=== PATIENT | male | born 1990 | race Caucasian/White ===

== ENCOUNTER 2017-06-16 01:47 | Emergency (ER) | payer BC, MEDICAID ==
[~2017-06-16] VITALS: Ht 185.4 cm; Wt 148.6 kg
[2017-06-16] MEDS: ibuprofen tablet 400 MG TABLET PO ONE (02:26)
[2017-06-16] MEDS ORDERED: ACET1TAB25 PO (02:32)
[2017-06-16] MEDS ORDERED: IBUP-1984 PO (02:32)
[2017-06-16 02:50] VITALS: BP 134/79
== END 2017-06-16 02:54 | disposition home or self-care (01) ==
LOC: ER 01:48
DX: S90.01XA Contusion of right ankle, initial encounter (principal); F17.200 Nicotine dependence, unspecified, uncomplicated; Z88.0 Allergy status to penicillin; Z88.2 Allergy status to sulfonamides; Z88.1 Allergy status to other antibiotic agents; W20.8XXA Other cause of strike by thrown, projected or falling object, initial encounter; Y93.89 Activity, other specified; Y92.89 Other specified places as the place of occurrence of the external cause; Y99.8 Other external cause status
CPT/HCPCS: 29515; 73590; 73610; 73630; 99284

== ENCOUNTER 2017-09-19 15:46 | Emergency (ER) | payer BC, MEDICAID ==
[~2017-09-19] VITALS: Ht 182.9 cm; Wt 133.0 kg
[2017-09-19 16:07] VITALS: BP 142/67
[2017-09-19] MEDS ORDERED: HYDR-3965 PO (16:43)
== END 2017-09-19 16:51 | disposition home or self-care (01) ==
LOC: ER 15:46
DX: R07.81 Pleurodynia (principal); Z88.1 Allergy status to other antibiotic agents; Z88.2 Allergy status to sulfonamides; Z98.890 Other specified postprocedural states; W01.198A Fall on same level from slipping, tripping and stumbling with subsequent striking against other object, initial encounter; Y93.E1 Activity, personal bathing and showering; Y92.89 Other specified places as the place of occurrence of the external cause; Y99.8 Other external cause status
CPT/HCPCS: 71100; 99282; 99284

== ENCOUNTER 2018-06-19 06:08 | Day surgery (SDC) | payer OTHER ==
[2018-06-12 14:34] LABS: BASOPHILS # (AUTO) 0.2 X10'3 (0-0.2); BASOPHILS % (AUTO) 1.3 % (0-1); EOSINOPHILS # (AUTO) 0.5 X10'3 (0-0.9); EOSINOPHILS % (AUTO) 3.4 % (0-6); LYMPHOCYTES # (AUTO) 3.1 X10'3 (1.1-4.8); LYMPHOCYTES % (AUTO) 22.7 % (21-51); MEAN CORPUSCULAR HEMOGLOBIN 30.9 PG (27.0-31.0); MEAN CORPUSCULAR HGB CONC 34.4 % (33.0-36.5); MEAN CORPUSCULAR VOLUME 89.7 FL (78-98); MEAN PLATELET VOLUME 8.5 FL (7.4-10.4); MONOCYTES # (AUTO) 0.6 X10'3 (0-0.9); MONOCYTES % (AUTO) 4.3 % (2-12); NEUTROPHILS # (AUTO) 9.4 X10'3 (1.8-7.7); NEUTROPHILS % (AUTO) 68.3 % (42-75); PRE OP HEMATOCRIT 47.6 % (42.0-52.0); PRE OP HEMOGLOBIN 16.4 g/dL (14.0-17.9); PRE OP PLATELET COUNT 259 X10'3 (140-440); RED CELL DISTRIBUTION WIDTH 12.8 % (11.5-14.5)
[2018-06-12 14:49] LABS: ALBUMIN/GLOBULIN RATIO 0.9 (1.1-1.5); ALKALINE PHOSPHATASE 85 IU/L (46-116); BLOOD UREA NITROGEN 9 MG/DL (7-18); BUN/CREATININE RATIO 10.2 (5.4-32.0); CALCIUM 9.1 MG/DL (8.5-10.1); CHLORIDE 102 MMOL/L (99-107); CREATININE 0.88 MG/DL (0.60-1.10); PRE OP ALT 62 U/L (30-65); PRE OP ANION GAP 10 (8-16); PRE OP AST 28 U/L (10-37); PRE OP BILIRUB, TOTAL 0.4 MG/DL (0.0-1.0); PRE OP GLUCOSE 83 MG/DL (70-104); PRE OP POTASSIUM 3.9 MMOL/L (3.4-5.1); PRE OP SODIUM 138 MMOL/L (135-145); TOTAL CARBON DIOXIDE 26.4 MMOL/L (24-32); TOTAL PROTEIN 8.6 G/DL (6.4-8.2); eGFR > 90 ML/MIN
[~2018-06-19] VITALS: Ht 182.9 cm; Wt 164.0 kg
[~2018-06-19 06:08] MED LIST: NO HOME MEDS; albuterol 2.5 MG/3 ML nebule NEB ONE; clindamycin 600mg/D5W 50ml 50 ML IV ONE; famotidine 20mg tablet PO ONE; ringers solution, lacted 1,000 ML IV SCH
[2018-06-19] MEDS ORDERED: LIDOcaine 1% 30ml preserv. free vial ONE (07:40)
[2018-06-19] MEDS ORDERED: ringers solution, lacted 1,000 ML IV SCH (08:07)
[2018-06-19] MEDS ORDERED: ondansetron/PF 4mg/2ml inj IV PRN (08:10)
[2018-06-19] MEDS ORDERED: meperidine/PF 25mg/ml syringe IV PRN ×3 (08:10)
[2018-06-19] MEDS ORDERED: morphine 4 MG/ML inj SYRINge IV PRN ×2 (08:10)
[2018-06-19] MEDS ORDERED: proCHLORperazine 10 MG/2 ml inj IV PRN (08:10)
[2018-06-19] MEDS ORDERED: MIDAZolam 5mg/5ml vial ONE (08:21)
[2018-06-19] MEDS ORDERED: fentaNYL/PF 50MCG/1 ML 2ML syringe ONE (08:21)
[2018-06-19] MEDS ORDERED: BUPIVAcaine/PF 2.5mg/ml (0.25%) 10ml vial ONE (08:26)
[2018-06-19] MEDS ORDERED: ketorolac trometh. 30mg/ml inj. ONE (09:05)
[2018-06-19 09:10] VITALS: BP 116/74
--- NOTE | 2018-06-19 09:10 | NUR ---
Received from OR via BED, accompanied by Anesthesiologist DR MENDIETA and report given by Anesthesiolgist. PATIENT A&OX4, DENIES PAIN, V/S WNL, NEUROVASCULAR CHECKS INTACT, 20G PIV LUE, SCD ON, DRESSING TO RIGHT WRIST CDI ELEVATED WITH ICEBAG APPLIED.
[2018-06-19 09:20] VITALS: BP 111/69
[2018-06-19 09:30] VITALS: BP 119/72
--- NOTE | 2018-06-19 09:30 | NUR ---
PATIENT A&OX4, DENIES PAIN, V/S WNL, NEUROVASCULAR CHECKS INTACT, 20G PIV LUE D/C, SCD OFF, DRESSING TO RIGHT WRIST CDI ELEVATED WITH ICEBAG APPLIED. I HAVE REVIEWED D/C INSTRUCTIONS WITH PATIENT AND FAMILY AND THEY HAVE VERBALIZED UNDERSTANDING. PATIENT D/C HOME WITH ALL BELONGINGS AND FAMILY GAVE TRANSPORT HOME.
[2018-06-19 12:35] VITALS: BP 120/86
[2018-06-19 12:39] VITALS: BP 120/56
== END 2018-06-19 09:30 | disposition home or self-care (01) ==
LOC: PAS 06:08
PROVIDERS: ATTEND Orthopaedic Surgery Hand Surgery
DX: G56.01 Carpal tunnel syndrome, right upper limb (principal); F41.9 Anxiety disorder, unspecified; E66.01 Morbid (severe) obesity due to excess calories; Z88.8 Allergy status to other drugs, medicaments and biological substances; Z88.1 Allergy status to other antibiotic agents; Z72.89 Other problems related to lifestyle; Z68.42 Body mass index [BMI] 45.0-49.9, adult
CPT/HCPCS: 29848; 36415; 80053; 82948; 85025; A6449; J1885; J2250; J3010; J3490; A7000; J7120

== ENCOUNTER 2018-09-28 07:39 | Emergency (ER) | payer OTHER ==
[~2018-09-28] VITALS: Ht 182.9 cm; Wt 163.6 kg
[~2018-09-28 07:39] MED LIST changes: -albuterol 2.5 MG/3 ML nebule NEB ONE; -clindamycin 600mg/D5W 50ml 50 ML IV ONE; -famotidine 20mg tablet PO ONE; -ringers solution, lacted 1,000 ML IV SCH
--- NOTE | 2018-09-28 07:50 | NUR ---
PATIENT PER WC TO ER #2. STATES HE SLIPPED ON THE PORCH THIS MORNING AND FELL DOWN STAIRS, INJURING HIS LEFT ANKLE.
[2018-09-28] MEDS ORDERED: HYDROcodone/acetaminophen 5mg/325mg tablet PO ONE (07:55)
[2018-09-28] MEDS ORDERED: HYDR-4383 PO (09:06)
[2018-09-28 09:50] VITALS: BP 137/53
== END 2018-09-28 09:54 | disposition home or self-care (01) ==
LOC: ER 07:39
DX: S82.65XA Nondisplaced fracture of lateral malleolus of left fibula, initial encounter for closed fracture (principal); F17.210 Nicotine dependence, cigarettes, uncomplicated; Z88.1 Allergy status to other antibiotic agents; Z88.2 Allergy status to sulfonamides; Z79.899 Other long term (current) drug therapy; Z98.890 Other specified postprocedural states; W10.8XXA Fall (on) (from) other stairs and steps, initial encounter; Y93.01 Activity, walking, marching and hiking; Y92.89 Other specified places as the place of occurrence of the external cause; Y99.8 Other external cause status
CPT/HCPCS: 29125; 29515; 73610; 99284

== ENCOUNTER 2018-09-30 09:53 | Outpatient (CLI) | payer SELFPAY ==
[~2018-09-30 09:53] MED LIST changes: +HYDR-4383 PO
[2018-09-30 11:09] VITALS: BP 153/96
== END 2018-09-30 11:30 | disposition home or self-care (01) ==
LOC: ORTHO 09:53
PROVIDERS: ATTEND Orthopaedic Surgery
DX: S82.52XA Displaced fracture of medial malleolus of left tibia, initial encounter for closed fracture (principal); F17.200 Nicotine dependence, unspecified, uncomplicated; X58.XXXA Exposure to other specified factors, initial encounter; Y93.89 Activity, other specified; Y92.89 Other specified places as the place of occurrence of the external cause; Y99.8 Other external cause status
CPT/HCPCS: 29405; 99213; A4590

== ENCOUNTER 2018-10-06 19:13 | Emergency (ER) | payer SELFPAY ==
[~2018-10-06] VITALS: Ht 182.9 cm; Wt 159.0 kg
[2018-10-06 19:32] VITALS: BP 135/90
== END 2018-10-06 20:59 | disposition home or self-care (01) ==
LOC: ER 19:13
DX: S82.65XD Nondisplaced fracture of lateral malleolus of left fibula, subsequent encounter for closed fracture with routine healing (principal); Z98.890 Other specified postprocedural states; Z88.1 Allergy status to other antibiotic agents; Z88.2 Allergy status to sulfonamides; Z79.899 Other long term (current) drug therapy; W10.8XXD Fall (on) (from) other stairs and steps, subsequent encounter
CPT/HCPCS: 29515; 99283

== ENCOUNTER → 2018-10-08 | Outpatient (CLI) | payer SELFPAY ==
[~2018-10-08] VITALS: Ht 182.9 cm; Wt 159.0 kg
[2018-10-08 13:01] VITALS: BP 120/82
== END | disposition home or self-care (01) ==
LOC: ORTHO 11:55
PROVIDERS: ATTEND Orthopaedic Surgery
DX: S82.832D Other fracture of upper and lower end of left fibula, subsequent encounter for closed fracture with routine healing (principal); X58.XXXD Exposure to other specified factors, subsequent encounter
CPT/HCPCS: 29515; 73610; 99214

== ENCOUNTER 2025-03-19 11:32 | Emergency (ER) | payer SELFPAY ==
[~2025-03-19] VITALS: Ht 182.9 cm; Wt 125.0 kg
--- NOTE | 2025-03-19 11:37 | Physician Documentation ---
History of Present Illness ~ Stated Complaint: DOG BITE Time Seen by MD: 11:37 Primary Medical Doctor: NONE HPI 34-year-old male who presents to the emergency department reporting that he picked up a puppy from someone on the street today, and when he put the dog in his truck and began petting it, the dog bit him several times to the right hand wrist and base of the thumb. Unknown tetanus status. Rabies status of the dog is unknown. Tetanus within 5 years?: No Medication Reconciliation Allergies: Coded Allergies: amoxicillin (Verified Allergy, Intermediate, RASH, 06/12/18) cephalexin (Verified Allergy, Intermediate, RASH, LIPS SWELL WITH BLISTERS, 06/12/18) clavulanic acid (Verified Allergy, Intermediate, RASH, 06/12/18) sulfamethoxazole (Verified Allergy, Intermediate, RASH, 06/12/18) trimethoprim (Verified Allergy, Intermediate, RASH, 06/12/18) Uncoded Allergies: SPECTRUM (Allergy, Unknown, 06/16/17) Scheduled Doxycycline Monohydrate (Doxycycline Monohydrate), 1 CAP PO Q12H Metronidazole* (Flagyl*), 1 TAB PO Q12H Scheduled PRN Hydrocodone/Acetaminophen (Okay 5-325 Tablet), 1 TAB PO TID PRN PRN for pain Miscellaneous Medications Home Med List (No Home Medications), (Reported) Past Medical History Past Medical History: Anxiety Past Surgical History: orthopedic surgeries Alcohol Use: Occasionally Drug Use: none Lives with: Spouse Lives In: Home Occupation: employed Review of Systems ROS As stated above in the HPI, otherwise all systems are reviewed and negative. Physical Exam Physical Exam General: Alert, no apparent distress. HEENT: PERRL, EOMI, no injection, moist mucous membranes. Neck: Full range of motion. Respiratory: Lungs clear, no respiratory distress. Chest: No accessory muscle use. Cardiovascular: Regular rate and rhythm, no murmurs. Gastrointestinal: Soft, nontender, nondistended. Bowels sounds present. Extremities: Normal range of motion, no deformity. Neurologic: Oriented x4. Psychiatric: Normal mood and affect. Skin: Normal color, warm and dry. No edema, no ecchymosis. Several bites to right hand, wrist, thumb. Full ROM of fingers with cap refill intact. Progress Results/Orders Results/Orders Orders - DEANA MOSHER NP Dressing Orders (03/19/25 11:42) Wound Care Orders (03/19/25 11:42) Completed Orders - DENAA MOSHER NP Tetanus/Pertuss/Diph Acell/Pf (Boostrix (03/19/25 11:45) Doxycycline 100mg Capsule (Vibramycin 10 (03/19/25 11:46) Metronidazole Tablet (Flagyl Tablet) (03/19/25 11:50) Vital Signs 03/19/25 11:39 Temp 97.3 Pulse 80 Resp 19 B/P (MAP) 122/87 Pulse Ox 98 O2 Flow Rate 0 Medical Decision Making Additional information obtaine: old records Findings The patient's last visit to this facility was on 10/08/2018, at which point he saw orthopedist Dr. Webb for planned surgery for a bi malleolar left ankle fracture. Differential Dx:Considerations: Include: Abrasion, Allergic reaction, Anap hylaxis, Cellulitis, Contusion, Fracture, Hematoma, Insect envenomation, Laceration, Neurovascular injury, Punture wound, Retained foreign body, Urticaria Departure Time of Disposition: 11:46 Disposition: 01 HOME / SELF CARE / HOMELESS Impression: Primary Impression: Dog bite Qualified Codes: W54.0XXA - Bitten by dog, initial encounter Condition: Stable Discharge Instructions: Animal Bite, Adult Additional Instructions: ### Dog Bite Care Summary If you have been bitten by a dog, its important to know how to care for your wound and protect your health. Here are the trujillo steps and information you need: Wound Care - Wash the bite area right away with soap and water. The doctor will clean the wound with a special solution to help prevent infection.[1] - The wound may be checked for damage to tendons, bones, or for any objects left inside. - Sometimes, stitches are needed, especially for deep or gaping wounds. Infection Prevention - Dog bites can cause infections. The risk is higher for bites to the hand, deep puncture wounds, or if you have a weak immune system.[1] - Antibiotics may be prescribed to help prevent infection. If you are allergic to common antibiotics like amoxicillin, cephalexin, or trimethoprim- sulfamethoxazole, other options such as doxycycline or certain fluoroquinolones may be used.[2][3] - Watch for signs of infection: redness, swelling, warmth, pus, or fever. If these happen, contact your doctor right away. Rabies and Tetanus Precautions - If the dogs rabies vaccination status is unknown, the safest plan is to have the dog observed by animal control for 10 days. If the dog stays healthy, you do not need rabies shots. If the dog gets sick or cannot be observed, rabies shots may be needed.[1] - Tetanus shots may be given if you havent had one in the last five years.[1] Pain Management - Most pain can be managed with acetaminophen (Tylenol) or non-steroidal anti- inflammatory drugs (NSAIDs) like ibuprofen. These help with mild to moderate pain and are usually safe when taken as directed.[4][5][6][7][8] - Stronger pain medicines are rarely needed and are used only if pain is severe. - If you have kidney problems, heart failure, or stomach ulcers, talk to your doctor before using NSAIDs.[4][8] When to Seek Help - Go to the emergency department if you have trouble moving your fingers, severe pain, heavy bleeding, or signs of infection. - If you develop chest pain, trouble breathing, or feel very sick, seek medical care immediately.[9][10] Follow-Up - You may need to see your doctor again in 1-2 days to check the wound and make sure it is healing well.[1] - If you have stitches, follow your doctors instructions for care and removal. Other Tips - Avoid picking at or scratching the wound. - Keep the area clean and dry. - Do not let pets lick your wound. Reporting - In most states, animal bites must be reported to local health authorities.[1] Remember: Proper wound care, infection prevention, and follow-up are important for healing and avoiding complications. If you have questions or concerns, contact your healthcare provider. ### References 1. Dog and Cat Bites. Leobardo Spencer. [employer]. 2014;90(4):239-43. 2. Antibiotic Stewardship in the Emergency Department Setting: Focus on Oral Antibiotic Selection for Adults With Skin and Soft Tissue Infections. Juan aDniel REICH, John MJ, Paul KL, et al. [employer]-System Pharmacy : AJHP : Official Journal of the [employer] Pharmacists. 2023;81(21):a641-x490. doi:10.1093/ajhp/wnww392. 3. Management of Skin and Soft-Tissue Infections in the Emergency Department. Edmundo FM, Tuan DA, Fariba GJ. [facility]. 2008;22(1):89-116, vi. doi:10.1016/j.idc.2007.12.001. 4. Optimizing the Treatment of Acute Pain in the Emergency Department. [employer] (2018). 5. Clinical Practice Guidelines for Pain Management in Acute Musculoskeletal Injury. Alanis JR, Memo H, Yair MK, Nehemiah RB. Journal of Orthopaedic Trauma. 2019;33(5):k290-z555. doi:10.1097/BOT.[id number]. 6. The Treatment of Acute Pain in the Emergency Department: A White Paper Position Statement Prepared for the [employer]. Maru S, Naveed R, Manohar TENORIO, et al. The Journal of Emergency Medicine. 2018;54(5):731-736. doi:10.1016/j.jemermed.2018.01.020. 7. Acute Pain Management in the Emergency Department: Use of Multimodal and Non- Opioid Analgesic Treatment Strategies. Gunnar GONZALEZ, Yamila C, Cherelle S, Motov S. The [employer] Journal [employer] Emergency Medicine. 2021;58:57-65. doi:10.1016/j.ajem.2022 .05.022. 8. Safely Managing Acute Osteoarthritis in the Emergency Department: An Evidence-Based Review. Jaciel SE, Vimal ChatterjeeD, Joe RM. The Journal of Emergency Medicine. 2016;51(6):648-657. doi:10.1016/j.jemermed.2016.05.052. 9. Discharge Communication in Patients Presenting to the Emergency Department With Chest Pain: Defining the [place] Content. Jacquelin S, Elisa A, Augustin COOK, et al. Health Communication. 2016;31(5):557-65. doi:10.1080/[id number]. 10. Guidelines for Reasonable and Appropriate Care in the Emergency Department (LUX): Recurrent, Low-Risk Chest Pain in the Emergency Department. Dasha PI, Marshall F, Yamini S, et al. Academic Emergency Medicine : Official Journal of the Society for Academic Emergency Medicine. 2020;28(7):718-744. doi:10.1111/acem.49107. Referrals: NO PRIMARY CARE PROVIDER (PCP) Prescriptions Metronidazole* (Flagyl*) 500 Mg Tablet 1 TAB PO Q12H for 7 Days, #14 TAB Prov: DEANA MOSHER NP 03/19/25 Doxycycline Monohydrate (Doxycycline Monohydrate) 100 Mg Capsule 1 CAP PO Q12H for 7 Days, #14 CAP Prov: DEANA MOSHER NP 03/19/25 Education Educated: Patient Educated regarding: diagnosis, treatment, prognosis, need for follow up Signature Scribe Signature: x Attestation: The note accurately reflects work and decisions made by me.Deana Funez NP 03/19/25 11:38 DEANA MOSHER NP Mar 19, 2025 11:37
[2025-03-19 11:39] VITALS: BP 122/87; PULSE 80; RESP 19; TEMP 97.3; O2SAT 98
[2025-03-19] MEDS ORDERED: TETanus/Pertussis (Acell)/Diphther VAC/PF (Tdap-Adult) 0.5ml syringe IMVAC ONE (11:45)
[2025-03-19] MEDS ORDERED: DOXYCYCLINE 100MG CAPSULE PO STA (11:46)
[2025-03-19] MEDS ORDERED: DOXY-347 PO (11:47)
[2025-03-19] MEDS ORDERED: METR-159 PO (11:47)
== END 2025-03-19 13:00 | disposition home or self-care (01) ==
LOC: ER 11:33
DX: S61.051A Open bite of right thumb without damage to nail, initial encounter (principal); S61.551A Open bite of right wrist, initial encounter; Z88.0 Allergy status to penicillin; Z88.1 Allergy status to other antibiotic agents; Z88.2 Allergy status to sulfonamides; W54.0XXA Bitten by dog, initial encounter; Y93.89 Activity, other specified; Y92.89 Other specified places as the place of occurrence of the external cause; Y99.8 Other external cause status
CPT/HCPCS: 99283